=== PATIENT | female | born 1995 | race Caucasian/White ===

== ENCOUNTER → 2019-11-07 13:38 | Outpatient (BNVA) | payer OTHER, SELFPAY | PROVIDERS: Visit Provider Family Medicine | DX: Z11.59 Encounter for screening for other viral diseases (principal) | CPT/HCPCS: 87635 ==

== ENCOUNTER 2020-09-04 08:50 | Emergency (ER) | payer SELFPAY ==
[2020-09-04 09:07] VITALS: BP 153/113; PULSE 109; RESP 15; TEMP 36.3; O2SAT 98; BMI 44.3
--- NOTE | 2020-09-04 09:17 | ED_ITS ---
HPI - Back Pain/Injury General: Chief Complaint: Back Pain/Injury Stated Complaint: back pain Time Seen by Provider: 09/04/20 09:08 History of Present Illness: HPI Narrative: Complains about bilateral flank pain that is radiating to her abdomen since yesterday evening. Did take some Aleve and gabapentin did not provide any relief. Patient is also has a history of hypertension which she not taken medication for due to the cost. Denies fever ,chill ,bowel or bladder problem MD elicited complaint: back pain Pertinent past history: prior back pain Onset (ago): hour(s) Timing: constant Severity: mild Similar Symptoms Previously: No Quality: dull (Fullness bilateral low back) Location: left flank and right flank Radiation: abdomen Exacerbating factors: movement Relieving factors: immobilization Associated symptoms: Reports no associated symptoms and urinary urgency; Deny abdominal pain, chills, fever(s), nausea or vomiting Treatments prior to arrival: NSAIDS and other medications Review of Systems Const: Denies: fever(s), chills or body aches Eyes: Denies: change in vision or blurry vision ENMT: Denies: throat pain or nasal congestion Card: Denies: chest pain or dyspnea on exertion Resp: Denies: dyspnea, productive cough or non-productive cough GI: Denies: abdominal pain, nausea or vomiting : Reports: flank pain, urinary frequency and urinary urgency Musc: Reports: back pain; Denies: extremity pain Skin/Breast: Denies: rash Neuro: Denies: headache(s) Psych: Denies: anxiety or depression David/Lymph: Denies: easy bruising PFS ED PFSH: Social History Smoking and tobacco status: current every day smoker Alcohol intake: never Marital status: Current gender identity: Female Female Reproductive History: Date of last menstrual period: 08/21/20 Physical Exam Const: COMMON NORMALS: no acute distress, average body habitus and patient o riented x3 HENMT: COMMON NORMALS: normocephalic HEAD & SCALP: normal to inspection and normocephalic FACE & SINUS: normal facial exam Eye: COMMON NORMALS: conjunctivae normal GENERAL EYE: appearance normal, both eyes and all related structures CONJUNCTIVA: Yes conjunctivae normal Neck/C-Spine: COMMON NORMALS: no JVD Chest: COMMONS NORMALS: normal inspection of the chest Resp: COMMON NORMALS: normal respiratory effort and clear to auscultation bilaterally AUSCULTATION: clear to auscultation bilaterally Cardio: COMMON NORMALS: no JVD, regular rate and regular rhythm RATE: regular rate RHYTHM: regular rhythm GI: COMMON NORMALS: Soft to palpation INSPECTION: Yes normal to inspection AUSCULTATION: Yes normoactive bowel sounds PALPATION: Yes Soft to palpation : BLADDER/KIDNEY EXAM: Yes CVA tenderness bilateral Back/Pelvis: GENERAL BACK: Yes CVA tenderness Extremity: COMMON NORMALS: normal to inspection and full ROM Neuro: COMMON NORMALS: patient oriented x3 Course Vital Signs: Vital signs: Vital Signs Temperature 97.3 F L 09/04/20 09:07 Pulse Rate 98 09/04/20 10:04 Respiratory Rate 18 09/04/20 10:04 Blood Pressure 166/127 09/04/20 10:04 Pulse Oximetry 97 09/04/20 10:04 MDM - Back Pain/Injury Lab Data: Labs: Lab Results 09/04/20 09/04/20 Range/Units 10:10 10:10 WBC 12.1 H (4.0-10.0) 10^3/ uL RBC 5.21 (4.1-5.3) 10^6/u L Hgb 14.7 (11.5-15.3) g/dL Hct 46.6 (37.0-47.0) % MCV 89.4 (81-99) fL MCH 28.2 (28.0-34.0) pg MCHC 31.5 (30.0-36.0) g/dL RDW 12.4 (12.1-15.1) % Plt Count 296 (130-400) 10^3/c mm MPV 9.8 (7.4-10.4) fL Neut % (Auto) 58.8 % Lymph % (Auto) 33.0 % [place] % (Auto) 4.4 % Eos % (Auto) 3.2 % Baso % (Auto) 0.3 % Neut # (Auto) 7.09 (1.8-7.7) 10^3/u L Lymph # (Auto) 4.0 (0.8-4.8) 10^3/u L [place] # (Auto) 0.5 (0.2-0.9) 10^3/u L Eos # (Auto) 0.4 (0.0-0.8) 10^3/u L Baso # (Auto) 0.0 (0.0-0.1) 10^3/u L Nucleated RBC % (a uto) 0 % Nucleated RBCs # 0.0 /100WBC Urine Color Yellow (Yellow) Urine Appearance Clear (CLEAR) Urine pH 5 (5-7) Ur Specific Gravit y 1.030 (1.005-1.030) Urine Protein Neg (Negative) Urine Glucose (UA) Norm (Normal) Urine Ketones Negative (Negative) Urine Blood Neg (Negative) Urine Nitrate Negative (Negative) Urine Bilirubin Neg (Negative) Urine Urobilinogen Norm (Negative) mg/dL Ur Leukocyte Isis ase Trace H (Negative) Urine RBC None (0-2) /hpf Urine WBC 5-10 H (0-5) /hpf Ur Squamous Epith Cells 10-15 H (0-5) /hpf Amorphous Sediment 1+ /hpf Urine Bacteria 2+ H (NONE) /hpf Discharge Plan Discharge Prescriptions: No Action methylprednisolone [Medrol (Norbert)] 4 mg tablets,dose pack See Rx Instructions PO PER PKG DIR Qty: 21 RF: 0 sulfamethoxazole-trimethoprim [Bactrim DS] 800-160 mg tablet 1 tab PO BID Qty: 20 RF: 0 phenazopyridine [Pyridium] 100 mg tablet 100 mg PO TID PRN (Reason: pain) Qty: 20 RF: 0 Coding Level of Care Code ED Supervisor Electric for Chg Fwd Exam Comprehensive
[2020-09-04 10:04] VITALS: BP 166/127; PULSE 98; RESP 18; O2SAT 97
[2020-09-04] MEDS: amlodipine 10 mg Tablet PO (10:14)
[2020-09-04 10:16] LABS: Basophils % 0.3 %; Eosinophils # 0.4 10^3/uL (0.0-0.8); Eosinophils % 3.2 %; Hematocrit 46.6 % (37.0-47.0); Hemoglobin 14.7 g/dL (11.5-15.3); Mean Corpuscular HGB Conc 31.5 g/dL (30.0-36.0); Mean Corpuscular Hemoglobin 28.2 pg (28.0-34.0); Mean Corpuscular Volume 89.4 fL (81-99); Mean Platelet Volume 9.8 fL (7.4-10.4); Monocytes # 0.5 10^3/uL (0.2-0.9); Monocytes % 4.4 %; Neutrophils # 7.09 10^3/uL (1.8-7.7); Neutrophils % 58.8 %; Nucleated Red Blood Cells % 0 %; Platelet Count 296 10^3/cmm (130-400); Red Blood Count 5.21 10^6/uL (4.1-5.3); Red Cell Distribution Width 12.4 % (12.1-15.1); White Blood Count 12.1 10^3/uL (4.0-10.0)
[2020-09-04 10:22] LABS: Add Urine Microscopic? YES; Bilirubin Urine Neg (Negative); Blood Urine Neg (Negative); Glucose Urine UA Norm (Normal); Ketones Urine Negative (Negative); Leukocyte Esterase Urine Trace (Negative); Nitrate Urine Negative (Negative); Protein Urine Neg (Negative); Urine Appearance Clear (CLEAR); Urine Color Yellow (Yellow); Urobilinogen Urine Norm (Negative); pH Urine 5 (5-7)
[2020-09-04 10:30] LABS: Amorphous Sediment Urine 1+ /hpf; Bacteria Urine 2+ /hpf
[2020-09-04 10:31] LABS: Add Urine Culture? No
[2020-09-04 10:37] LABS: Alanine Aminotransferase 79 U/L (0-33); Albumin Level 4.4 g/dL (3.5-5.2); Alkaline Phosphatase 90 IU/L (35-105); Anion Gap 13.2 (5-19); Aspartate Amino Transferase 43 U/L (0-32); Blood Urea Nitrogen 11 mg/dL (6-20); Calcium 9.3 mg/dL (8.5-10.5); Carbon Dioxide 27 mmol/L (22-29); Chloride 102 mmol/L (98-107); Globulin 2.7 g/dL (1.3-4.6); Glomerular Filtration Rate 120.8 mL/min (90-130); Glucose 92 mg/dL (65-115); Lipase 26 U/L (13-60); Osmolality Calculated 285 mOsm/kg (285-295); Potassium 4.2 mmol/L (3.5-5.1); Sodium 138 mmol/L (136-145); Total Bilirubin 0.3 mg/dL (0.15-1.2); Total Protein 7.1 g/dL (6.6-8.7)
[2020-09-04] MEDS: nitrofurantoin SR (BID) 100 mg Capsule PO (10:45)
[2020-09-04] MEDS: TRAMadol 50 mg Tablet PO (10:45)
[2020-09-04 11:16] VITALS: BP 172/103; PULSE 95; RESP 18; TEMP 37.1; O2SAT 97
== END 2020-09-04 11:17 | disposition home or self-care (01) ==
PROVIDERS: Emergency Provider Nurse Practitioner Family
DX: M54.9 Dorsalgia, unspecified (principal); F17.210 Nicotine dependence, cigarettes, uncomplicated
CPT/HCPCS: 80053; 81001; 83690; 85025; 99283

== ENCOUNTER 2021-11-16 11:00 | Emergency (ER) | payer SELFPAY ==
[2021-11-16 11:05] VITALS: BP 161/121; PULSE 101; RESP 16; TEMP 37.2; O2SAT 98; BMI 47.2
--- NOTE | 2021-11-16 11:11 | ED_ITS ---
HPI - Head Injury General: Chief complaint: Head Injury Stated complaint: hit head; nausea; disorientation Time Seen by Provider: 11/16/21 11:01 History of Present Illness: Patient is a 26-year-old female comes to the ED after head injury. Injury occurred yesterday. Patient stepped on the teeth of a rake and popped up and hit her in her head. Her headache had a metal handle and it hit the right side of her head. Denies any loss of consciousness. She says she felt a little dazed and out of it right afterwards. Today she woke up and was having 7 out of 10 headache. She also reports having some episodes of dizziness and nausea as well. Denies any vision changes, weakness to 1 side of her body or face or change in sensation to face or body. Associated symptoms: Reports nausea; Deny neck pain or vomiting Review of Systems Const: Denies: fever(s), chills or fatigue Eyes: Denies: change in vision or eye discomfort ENMT: Denies: throat pain, odynophagia, nasal discharge or nasal congestion Card: Denies: chest pain, palpitations, edema, swelling of feet/ankles, dyspnea on exertion or orthopnea Resp: Denies: dyspnea, productive cough or non-productive cough GI: Reports: nausea; Denies: abdominal pain, vomiting, diarrhea, constipation or hematochezia : Denies: flank pain, dysuria or hematuria Musc: Denies: neck pain, back pain or extremity swelling Skin/Breast: Denies: rash or new lesions Neuro: Reports: headache(s) and dizziness (Episode); Denies: numbness in extremities or weakness in extremities [facility] ED PFSH: Medical History No pertinent family history Surgical History No pertinent past surgical history Social History Smoking and tobacco status: current every day smoker Second hand smoke exposure: No Alcohol intake: never Caregiver/support person: Yes Lives independently: Yes Household members: spouse Marital status: service: No Current occupational status: employed Current occupation: [employer] History of recent travel: No Current gender identity: Female Special yogesh needs: No Agree to transfusion: Yes Female Reproductive History: Date of last menstrual period: 10/26/21 Physical Exam Const: COMMON NORMALS: no acute distress, patient oriented x3 and alert GENERAL APPEARANCE: cooperative and comfortable HENMT: COMMON NORMALS: normocephalic HEAD & SCALP: normocephalic and scalp tenderness (Tenderness to scalp on right frontal region); no Bear's sign and no raccoon eyes MOUTH: Normal oral and palatal mucosa present THROAT: posterior oropharynx normal and uvula midline Eye: COMMON NORMALS: Equal, round and reactive pupils present and EOMs intact bilaterally GENERAL EYE: appearance normal, both eyes and all related structures PUPIL: Yes Equal, round and reactive pupils present Neck/C-Spine: COMMON NORMALS: supple GENERAL: Yes normal visual inspection Lymph: LYMPHATIC: no lymphadenopathy noted Resp: COMMON NORMALS: normal respiratory effort, No retractions, No use of accessory muscles and clear to auscultation bilaterally AUSCULTATION: clear t o auscultation bilaterally Cardio: COMMON NORMALS: regular rate, regular rhythm, S1 normal heart sound present, S2 normal heart sound present, No gallops present (Cardio), No clicks present (Cardio), No murmurs present (Cardio) and Peripheral pulses 2+ throughout RATE: regular rate RHYTHM: regular rhythm HEART SOUNDS: S1 normal heart sound present and S2 normal heart sound present PERIPHERAL PULSES: Peripheral pulses 2+ throughout GI: COMMON NORMALS: Normal to inspection, nondistended, normoactive bowel sounds present, Soft to palpation, non-tender and no masses PALPATION: Yes Soft to palpation : COMMON NORMALS: Yes no CVA tenderness BLADDER/KIDNEY EXAM: Yes no CVA tenderness Back/Pelvis: COMMON NORMALS: no CVA tenderness Extremity: GENERAL: Yes normal exam except as noted Neuro: COMMON NORMALS: patient oriented x3, CN's II-XII intact bilaterally, moves all extremities, no focal motor deficits and no sensory deficits noted SENSORIUM/ORIENTATION: Yes alert SENSORY EXAM: Yes extremities (intact) MOTOR EXAM: 5/5 motor strength present throughout Skin: COMMON NORMALS: no rashes or lesions noted GENERAL SKIN EXAM: no rashes or lesions noted and dry skin Course Vital Signs: Vital signs: Vital Signs Temperature 98.9 F 11/16/21 11:05 Pulse Rate 101 H 11/16/21 11:05 Respiratory Rate 16 11/16/21 11:05 Blood Pressure 161/121 11/16/21 11:05 Pulse Oximetry 98 11/16/21 11:05 MDM - Head Injury Medcial Decision Making Patient is a 26-year-old female comes to the ED after head injury. Injury occurred yesterday. Patient stepped on the teeth of a rake and popped up and hit her in her head. Denies any loss of consciousness. Vitals are stable. Exam of patient is benign and neuro exam shows no deficits. CT of head shows no acute findings. Patient was given a dose of Toradol and Zofran while here in the ED. Patient diagnosed with minor head injury without loss of consciousness and discharged home. Told to follow-up with PCP in the next week for reevaluation. Return to ED precautions given. Patient understood and agreed with plan. Lab Data Radiology Impressions Head CT 11/16/21 11:18 IMPRESSION: No acute intracranial abnormality. Discharge Plan Discharge Patient Disposition: Home Clinical Impression: Minor head injury without loss of consciousness Qualifiers: Encounter type: initial encounter Qualified Code(s): S09.90XA - Unspecified injury of head, initial encounter Condition: Stable Prescriptions: No Action methylprednisolone [Medrol (Norbert)] 4 mg tablets,dose pack See Rx Instructions PO PER PKG DIR Qty: 21 0RF Rx Instructions: PO PER PKG DIR diclofenac sodium 75 mg tablet,delayed release (DR/EC) 75 mg PO BID PRN (Reason: pain) Qty: 30 0RF cyclobenzaprine 10 mg tablet 10 mg PO TID PRN (Reason: muscle spasm) Qty: 30 0RF azithromycin 250 mg tablet See Rx Instructions PO .COMPLEX Qty: 6 0RF Rx Instructions: take 500 mg today (day 1), then 250 mg for 4 days (days 2-5) PO prednisone 20 mg tablet 40 mg PO DAILY Qty: 10 0RF albuterol sulfate [ProAir HFA] 90 mcg/actuation HFA aerosol inhaler 2 puff inhalation Q6H PRN (Reason: shortness of breath or wheezing) Qty: 8.5 1RF sulfamethoxazole-trimethoprim [Bactrim DS] 800-160 mg tablet 1 tab PO BID Qty: 14 0RF Discharge Orders: Discharge ED (Routine); Ordered 11/16/21 Ordered By: Venancio Barksdale Referrals: Martinez,Krysten, MD [Primary Care Provider] - Discharge Diet: Regular Discharge Activity: Increase activity as tolerated Patient Instructions: Head Injury (ED) Activity Restrictions/Additional Instructions: Follow-up with medical provider as directed in the next 5 to 7 days reevaluation. Take [id number] Tylenol or ibuprofen per bottle instruction for any headache. Return to the ER or your medical provider if condition worsens. Please read and understand discharge instructions. Thank you for choosing [facility] for your healthcare needs today. Please realize this is an emergency room and that we are providing you with a medical screening exam and this may not be complete and all inclusive of all the testing and or work up that you may need to determine your ailment or severity of your illness. It is very important that you follow up as instructed or that you return to the Emergency Department should you have concerns or if your condition changes or worsens in any way. Coding Level of Care Code ED Urban Design Consultant for Cintia Fwmaged Exam Comprehensive
--- NOTE | 2021-11-16 11:18 | CTR_ITS ---
PROCEDURE INFORMATION: Exam: CT Head Without Contrast Exam date and time: 11/16/2021 11:43 AM Age: 26 years old Clinical indication: Injury or trauma; Other: Hit in head with rake; Blunt trauma (contusions or hematomas); Without loss of consciousness; Additional info: Hit in head with metal rake-right side of head TECHNIQUE: Imaging protocol: Computed tomography of the head without contrast. Radiation optimization: All CT scans at this facility use at least one of these dose optimization techniques: automated exposure control; mA and/or kV adjustment per patient size (includes targeted exams where dose is matched to clinical indication); or iterative reconstruction. COMPARISON: No relevant prior studies available. RADIATION DOSE METRICS: Total DLP (mGy-cm): 1034.08 FINDINGS: Brain: Normal. No hemorrhage. Unremarkable white matter. No mass effect. Cerebral ventricles: No ventriculomegaly. Paranasal sinuses: Visualized sinuses are unremarkable. No fluid levels. Mastoid air cells: Visualized mastoid air cells are well aerated. Bones/joints: Unremarkable. No acute fracture. Soft tissues: Unremarkable. CT/CT head wo con* [id number] IMPRESSION: No acute intracranial abnormality.
[2021-11-16] MEDS: ketorolac 60 mg/2 mL INJ IM (11:40)
[2021-11-16] MEDS: ondansetron 2 mg/ML SDV 2 mL 4 MG IM (11:41)
== END 2021-11-16 12:34 | disposition home or self-care (01) ==
PROVIDERS: Emergency Provider Physician Assistant; PCP Family Medicine
DX: S09.8XXA Other specified injuries of head, initial encounter (principal); F17.210 Nicotine dependence, cigarettes, uncomplicated; W20.8XXA Other cause of strike by thrown, projected or falling object, initial encounter
CPT/HCPCS: 70450; 96372; 99285; J1885; J2405

== ENCOUNTER 2022-01-02 16:13 | Outpatient (CLI) | payer OTHER, SELFPAY ==
--- NOTE | 2022-01-02 17:00 | CTR_ITS ---
PROCEDURE INFORMATION: Exam: CT Head Without Contrast Exam date and time: 01/02/2022 4:27 PM Age: 26 years old Clinical indication: Pain; Patient HX: Headaches; Additional info: S09.90xa - unspecified injury of head, initial encounter TECHNIQUE: Imaging protocol: Computed tomography of the head without contrast. Radiation optimization: All CT scans at this facility use at least one of these dose optimization techniques: automated exposure control; mA and/or kV adjustment per patient size (includes targeted exams where dose is matched to clinical indication); or iterative reconstruction. COMPARISON: CT head wo con* [id number] 11/16/2021 11:43 AM RADIATION DOSE METRICS: Total DLP (mGy-cm): 1034.78 FINDINGS: Brain: No acute hemorrhage identified. No large territorial areas of hypoattenuation concerning for ischemic infarct identified. No intracranial mass effect. Cerebral ventricles: The ventricles are within normal limits. Paranasal sinuses: The visualized sinuses are unremarkable. Mastoid air cells: The visualized mastoid air cells are well aerated. Bones/joints: The osseous structures are intact. Soft tissues: Unremarkable. CT/CT head wo con* [id number] IMPRESSION: No acute intracranial abnormality.
== END 2022-01-02 16:14 | disposition home or self-care (01) ==
PROVIDERS: PCP Family Medicine; Visit Provider Nurse Practitioner Family
DX: S09.90XA Unspecified injury of head, initial encounter (principal); X58.XXXA Exposure to other specified factors, initial encounter
CPT/HCPCS: 70450

== ENCOUNTER → 2022-01-21 16:30 | Outpatient (BNVA) | payer SELFPAY | PROVIDERS: PCP Family Medicine; Visit Provider Nurse Practitioner Family | DX: R05.9 Cough, unspecified (principal) | CPT/HCPCS: 71046 ==

== ENCOUNTER → 2022-02-23 09:47 | Outpatient (BNVA) | payer SELFPAY | PROVIDERS: PCP Family Medicine; Visit Provider Nurse Practitioner Family | DX: N39.0 Urinary tract infection, site not specified (principal); E66.01 Morbid (severe) obesity due to excess calories; L20.9 Atopic dermatitis, unspecified; N91.1 Secondary amenorrhea; R79.89 Other specified abnormal findings of blood chemistry; Z13.1 Encounter for screening for diabetes mellitus | CPT/HCPCS: 80053; 80061; 81025; 83036; 84443; 84702 ==

== ENCOUNTER 2022-09-20 21:10 | Emergency (ER) | payer OTHER, SELFPAY ==
[2022-09-20 21:19] VITALS: BP 152/97; PULSE 113; RESP 16; TEMP 36.9; O2SAT 98; BMI 52.5
[2022-09-20] MEDS: sodium chloride 0.9% 1,000 ML 999 ML IV (21:50)
[2022-09-20 21:52] LABS: Basophils # 0.1 10^3/uL (0.0-0.1); Basophils % 0.4 %; Eosinophils # 0.3 10^3/uL (0.0-0.8); Eosinophils % 1.9 %; Hematocrit 45.9 % (37.0-47.0); Hemoglobin 14.5 g/dL (11.5-15.3); Lymphocytes # 3.6 10^3/uL (0.8-4.8); Lymphocytes % 25.4 %; Mean Corpuscular HGB Conc 31.6 g/dL (30.0-36.0); Mean Corpuscular Hemoglobin 27.8 pg (28.0-34.0); Mean Corpuscular Volume 88.1 fl (81-99); Mean Platelet Volume 10.3 fL (7.4-10.4); Monocytes # 0.5 10^3/uL (0.2-0.9); Monocytes % 3.6 %; Neutrophils # 9.53 10^3/uL (1.8-7.7); Neutrophils % 68.3 %; Nucleated Red Blood Cells % 0 %; Platelet Count 304 10^3/cmm (130-400); Red Blood Count 5.21 10^6/uL (4.1-5.3); Red Cell Distribution Width 12.4 % (12.1-15.1)
[2022-09-20] MEDS: ondansetron 2 mg/ML SDV 2 mL 4 MG IVP (21:52)
[2022-09-20 21:56] VITALS: BP 166/76; PULSE 104; RESP 18; O2SAT 97
[2022-09-20] MEDS: LORazepam 2 mg/mL INJ 1 mL 1 MG IVP (21:58)
[2022-09-20 22:08] LABS: HCG, Serum Qual Negative (Negative)
[2022-09-20 22:15] LABS: Urine Appearance Clear (CLEAR); Urine Color Colorless (Yellow)
[2022-09-20 22:16] LABS: Bilirubin Urine Neg (Negative); Blood Urine Trace (Negative); Glucose Urine UA Norm (Normal); Ketones Urine 1+ (Negative); Leukocyte Esterase Urine Negative (Negative); Nitrate Urine Negative (Negative); Protein Urine Neg (Negative); Specific Gravity, Urine 1.025 (1.005-1.030); Urobilinogen Urine Norm (Negative); pH Urine 5 (5-7)
[2022-09-20 22:17] LABS: Add Urine Microscopic? YES
[2022-09-20 22:18] LABS: Calcium Oxalate Crystals Urine 15-25 /hpf
[2022-09-20 22:21] LABS: Albumin Level 4.4 g/dL (3.5-5.2); Alkaline Phosphatase 90 U/L (35-105); Chloride 102 mmol/L (98-107); Glucose 87 mg/dL (65-115); Sodium 139 mmol/L (136-145)
[2022-09-20 22:42] LABS: Blood Urea Nitrogen 13 mg/dL (6-20); Calcium 9.9 mg/dL (8.5-10.5); Carbon Dioxide 25 mmol/L (22-29); Globulin 3.7 g/dL (1.3-4.6); Glomerular Filtration Rate 85.4 mL/min (90-130); Lipase 24 U/L (13-60); Osmolality Calculated 287 mOsm/kg (285-295); Total Bilirubin 0.5 mg/dL (0.15-1.2); Total Protein 8.1 g/dL (6.6-8.7)
[2022-09-20 22:56] VITALS: PULSE 95; RESP 18; O2SAT 98
[2022-09-20 23:09] LABS: Alanine Aminotransferase 102 U/L (0-33); Aspartate Amino Transferase 72 U/L (0-32)
[2022-09-20 23:10] LABS: C Reactive Protein 13.6 mg/L (0.0-4.9)
[2022-09-21 00:12] VITALS: BP 148/86; PULSE 106; RESP 16; O2SAT 96
--- NOTE | 2022-09-21 00:52 | ED_ITS ---
HPI - Nausea/Vomiting/Diarrhea General: Chief complaint: Nausea/Vomiting/Diarrhea Stated complaint: Vomiting \Light Headed Time Seen by Provider: 09/20/22 21:28 Source: patient History of Present Illness: 27-year-old female who was at work, when she became dizzy. She was also nauseated. She felt like my blood sugar was low . She threw up 3 times in ab out 45 minutes she says. She is somewhat better now, but still nauseated. She is still dizzy. She is able to walk. She has no other neurological symptoms. No speech or language problems, no vision changes, no weakness, no numbness or tingling. MD elicited complaint: nausea, vomiting and other Pertinent past history: other Onset (ago): hour(s) (2) Description of vomiting: food contents Associated nausea: Yes Associated abdominal pain: No Location of pain: None Quality: other Exacerbating factors: vomiting Relieving factors: none Associated symtoms: Reports dizziness and nausea; Denies altered mental status, bloating, change in vision, chest pain, cough, fevers/chills, headache(s), myalgias, numbness, short of breath or syncope Treatment prior to arrival: none Review of Systems Eyes: Denies: change in vision ENMT: Denies: throat pain Card: Denies: chest pain or syncope Resp: Denies: dyspnea GI: Reports: nausea, vomiting and diarrhea (Chronic); Denies: abdominal pain or bloating : Denies: flank pain Neuro: Reports: dizziness; Denies: headache(s) [facility] ED PFSH: Medical History Acute parotitis Bronchitis Exposure to COVID-19 virus Low back pain No pertinent family history Surgical History No pertinent past surgical history Social History Smoking and tobacco status: current every day smoker (1 PPD) cigarettes Packs smoked per day: 1 Years cigarettes smoked: 15 Alcohol intake: current Alcohol intake frequency: holidays/special occasions only Alcohol type: beer, wine and hard liquor Substance/Drug Use: former Date of last use: 7 years ago Physical Exam Const: COMMON NORMALS: no acute distress and alert EXAM LIMITATIONS: no altered mental status GENERAL APPEARANCE: cooperative; not ill appearing and not frail appearing ORIENTATION/CONSCIOUSNESS: Yes oriented to time HENMT: COMMON NORMALS: normocephalic, atraumatic and Normal external nose present HEAD & SCALP: normocephalic and atraumatic FACE & SINUS: normal facial exam and face symmetric NOSE: Normal external nose present Eye: COMMON NORMALS: Equal, round and reactive pupils present and EOMs intact bilaterally PUPIL: Yes Equal, round and reactive pupils present Neck/C-Spine: GENERAL: Yes trachea midline Chest: CHEST: Yes Symmetrical chest wall rise Resp: COMMON NORMALS: normal respiratory effort, No retractions, No use of accessory muscles and clear to auscultation bilaterally AUSCULTATION: clear to auscultation bilaterally Cardio: COMMON NORMALS: regular rate and regular rhythm RATE: regular rate RHYTHM: regular rhythm GI: COMMON NORMALS: Normal to inspection, nondistended, normoactive bowel sounds present Extremity: COMMON NORMALS: no pedal edema Neuro: KIESHA COMA SCALE: document GCS findings Kiesha coma scale eye opening: Spontaneous Kiesha coma scale verbal response: Orientated Kiesha coma scale motor response: Obey commands [place] coma scale total score: 15 SENSORIUM/ORIENTATION: Yes alert and Yes oriented to time CRANIAL NERVES: Yes CN normal except as noted COORDINATION/BALANCE: [id number] test normal SPEECH: speech normal GAIT: Yes Normal gait present (On ambulation to the bathroom) SENSORY EXAM: Yes extremities (intact) MOTOR EXAM: Pronator motor function not present and Normal motor muscle tone present throughout COORDINATION: [id number] test normal Psych: COMMON NORMALS: mental status grossly normal, cooperative and speech normal SPEECH: Yes normal speech Skin: COMMON NORMALS: no rashes or lesions noted GENERAL SKIN EXAM: no rashes or lesions noted Course Vital Signs: Vital signs: Vital Signs Temperature 98.5 F 09/20/22 21:19 Pulse Rate 106 H 09/21/22 00:12 Respiratory Rate 16 09/21/22 00:12 Blood Pressure 148/86 09/21/22 00:12 Pulse Oximetry 96 09/21/22 00:12 Oxygen Delivery Me thod Room Air 09/20/22 21:56 MDM - Nausea/Vomiting/Diarrhea Medical Decision Making Patient improved after administration of Ativan and Zofran as well as 1 L of fluid here. She has a mild leukocytosis of 14 with no left shift. There is no belly tenderness on exam. Her CRP is minimally elevated at 13. We will liver enzymes are mildly elevated, but this is chronic for her as she has fatty liver disease. Her bilirubin is 0.5. BUN and creatinine are normal. Urinalysis is negative. She is not . With ability to ambulate without assistance, and no focal neurologic findings, CT of the head not felt clinically warranted. She will be allowed discharged with symptomatic treatment. To return for worsening symptoms. Lab Data 09/20/22 21:41 09/20/22 21:41 Laboratory Results WBC 14.0 10^3/uL (4.0-10.0) H 09/20/22 21:41 RBC 5.21 10^6/uL (4.1-5.3) 09/20/22 21:41 Hgb 14.5 g/dL (11.5-15.3) 09/20/22 21:41 Hct 45.9 % (37.0-47.0) 09/20/22 21:41 MCV 88.1 fl (81-99) 09/20/22 21:41 MCH 27.8 pg (28.0-34.0) L 09/20/22 21: MCHC 31.6 g/dL (30.0-36.0) 09/20/22 21:41 RDW 12.4 % (12.1-15.1) 09/20/22 21:41 Plt Count 304 10^3/cmm (130-400) 09/20/22 21:41 MPV 10.3 fL (7.4-10.4) 09/20/22 21:41 Neut % (Auto) 68.3 % 09/20/22 21:41 Lymph % (Auto) 25.4 % 09/20/22 21:41 [place] % (Auto) 3.6 % 09/20/22 21:41 Eos % (Auto) 1.9 % 09/20/22 21:41 Baso % (Auto) 0.4 % 09/20/22 21:41 Neut # (Auto) 9.53 10^3/uL (1.8-7.7) H 09/20/22 21:41 Lymph # (Auto) 3.6 10^3/uL (0.8-4.8) 09/20/22 21:41 [place] # (Auto) 0.5 10^3/uL (0.2-0.9) 09/20/22 21:41 Eos # (Auto) 0.3 10^3/uL (0.0-0.8) 09/20/22 21:41 Baso # (Auto) 0.1 10^3/uL (0.0-0.1) 09/20/22 21:41 Nucleated RBC % (auto) 0 % 09/20/22 21:41 Nucleated RBCs # 0.0 /100WBC 09/20/22 21:41 Sodium 139 mmol/L (136-145) 09/20/22 21:41 Potassium 4.0 mmol/L (3.5-5.1) 09/20/22 21:41 Chloride 102 mmol/L (98-107) 09/20/22 21:41 Carbon Dioxide 25 mmol/L (22-29) 09/20/22 21:41 Anion Gap 16.0 (5-19) 09/20/22 21:41 BUN 13 mg/dL (6-20) 09/20/22 21:41 Creatinine 0.8 mg/dL (0.5-0.9) 09/20/22 21:41 GFR Calculation 85.4 mL/min (90-130) L 09/20/22 21:41 Glucose 87 mg/dL (65-115) 09/20/22 21:41 Calculated Osmolality 287 mOsm/kg (285-295) 09/20/22 21:41 Calcium 9.9 mg/dL (8.5-10.5) 09/20/22 21:41 Total Bilirubin 0.5 mg/dL (0.15-1.2) 09/20/22 21:41 AST 72 U/L (0-32) H 09/20/22 21:41 ALT 102 U/L (0-33) H 09/20/22 21:41 Alkaline Phosphatase 90 U/L (35-105) 09/20/22 21:41 C-Reactive Protein 13.6 mg/L (0.0-4.9) H 09/20/22 21:41 Total Protein 8.1 g/dL (6.6-8.7) 09/20/22 21:41 Albumin 4.4 g/dL (3.5-5.2) 09/20/22 21:41 Globulin 3.7 g/dL (1.3-4.6) 09/20/22 21:41 Lipase 24 U/L (13-60) 09/20/22 21:41 HCG, Qual Negative (Negative) 09/20/22 21:41 Urine Color Colorless (Yellow) 09/20/22 22:03 Urine Appearance Clear (CLEAR) 09/20/22 22:03 Urine pH 5 (5-7) 09/20/22 22:03 Ur Specific [place] 1.025 (1.005-1.030) 09/20/22 22:03 Urine Protein Neg (Negative) 09/20/22 22:03 Urine Glucose (UA) Norm (Normal) 09/20/22 22:03 Urine Ketones 1+ (Negative) H 09/20/22 22:03 Urine Blood Trace (Negative) H 09/20/22 22:03 Urine Nitrate Negative (Negative) 09/20/22 22:03 Urine Bilirubin Neg (Negative) 09/20/22 22:03 Urine Urobilinogen Norm mg/dL (Negative) 09/20/22 22:03 Ur Leukocyte Esterase Negative (Negative) 09/20/22 22:03 Urine RBC None /hpf (0-2) 09/20/22 22:03 Urine WBC None /hpf (0-5) 09/20/22 22:03 Ur Squamous Epith Cells None /hpf (0-5) 09/20/22 22:03 Calcium Oxalate Crystal 15-25 /hpf H 09/20/22 22:03 Amorphous Sediment Not Reportable 09/20/22 22:03 Urine Bacteria None /hpf (NONE) 09/20/22 22:03 Discharge Plan Discharge Patient Disposition: Home Clinical Impression: Vomiting, Dizziness Condition: Stable Prescriptions: New ondansetron 4 mg film 4 mg PO DAILY PRN (Reason: nausea and vomiting) Qty: 10 0RF meclizine 25 mg tablet 25 mg PO TID PRN (Reason: dizziness) Qty: 20 0RF No Action methylprednisolone [Medrol (Norbert)] 4 mg tablets,dose pack See Rx Instructions PO PER PKG DIR Qty: 21 0RF Rx Instructions: PO PER PKG DIR cefdinir 300 mg capsule 300 mg PO BID 10 Days Qty: 20 0RF promethazine-DM 6.25-15 mg/5 mL syrup 5 - 10 ml PO Q6H PRN (Reason: cough) Qty: 180 0RF nystatin-triamcinolone 100,000-0.1 unit/gram-% ointment 1 applic topical QID Qty: 60 0RF albuterol sulfate 90 mcg/actuation HFA aerosol inhaler 2 puff inhalation Q6H PRN (Reason: shortness of breath or wheezing) Qty: 8.5 2RF Discharge Orders: Discharge ED (Routine); Ordered 09/21/22 Ordered By: Rowdy Harper Referrals: Krysten Martinez MD [Primary Care Provider] - 1-3 days Patient Instructions: Acute Nausea and Vomiting (ED), Dizziness (ED) Activity Restrictions/Additional Instructions: Take prescribed medications scheduled for the first 24 hours, then as needed. Return for worsening dizziness or nausea/vomiting despite treatment, fever greater than 100, inability to tolerate liquids, headache, vision changes, significant weakness or language problems, other concerning symptoms. Stand Alone Forms: Work/School Release Coding Level of Care Code ED Inspector Filters for Cintia Ramsey
== END 2022-09-21 00:15 | disposition home or self-care (01) ==
PROVIDERS: Emergency Provider Emergency Medicine; PCP Family Medicine
DX: D72.829 Elevated white blood cell count, unspecified (principal); R11.10 Vomiting, unspecified; R42 Dizziness and giddiness
CPT/HCPCS: 80053; 81001; 83690; 84703; 85025; 86140; 96361; 96374; 96375; 99284; J2060; J2405; J7030

== ENCOUNTER → 2022-09-30 14:40 | Outpatient (BNVA) | payer MEDICAID, SELFPAY | PROVIDERS: PCP Family Medicine; Referring Provider Nurse Practitioner Family; Visit Provider Obstetrics & Gynecology | DX: N92.6 Irregular menstruation, unspecified (principal) | CPT/HCPCS: 83001; 83520; 84146; 84403; 84443 ==

== ENCOUNTER → 2022-10-07 11:59 | Outpatient (BNVA) | payer MEDICAID, SELFPAY | PROVIDERS: PCP Family Medicine; Visit Provider Nurse Practitioner Family | DX: E16.2 Hypoglycemia, unspecified (principal); K76.0 Fatty (change of) liver, not elsewhere classified; E66.01 Morbid (severe) obesity due to excess calories | CPT/HCPCS: 80053; 80061; 82306; 83036; 85025 ==

== ENCOUNTER → 2022-10-26 11:16 | Outpatient (BNVA) | payer MEDICAID, SELFPAY | PROVIDERS: PCP Family Medicine; Visit Provider Obstetrics & Gynecology | DX: N92.6 Irregular menstruation, unspecified (principal); N97.9 Female infertility, unspecified | CPT/HCPCS: 76830 ==

== ENCOUNTER 2022-10-30 16:08 | Outpatient (CLI) | payer MEDICAID, SELFPAY ==
--- NOTE | 2022-10-30 16:50 | XR_ITS ---
WS: [id number] LEFT TIBIA-FIBULA 2 VIEWS HISTORY: M79.605 - Pain in left leg COMPARISON: None available. No fracture, dislocation or joint abnormality. XR/XR tibia fibula LT 2V [id number] IMPRESSION: Normal LEFT tibia-fibula.
== END 2022-10-30 16:09 | disposition home or self-care (01) ==
LOC: RAD 16:09
PROVIDERS: PCP Nurse Practitioner Family; Visit Provider Nurse Practitioner Family
DX: M79.605 Pain in left leg (principal)
CPT/HCPCS: 73590

== ENCOUNTER → 2022-11-23 08:39 | Outpatient (BNVA) | payer MEDICAID, SELFPAY | PROVIDERS: PCP Nurse Practitioner Family; Visit Provider Nurse Practitioner Family | DX: R05.8 Other specified cough (principal); J02.9 Acute pharyngitis, unspecified; U07.1 COVID-19 | CPT/HCPCS: 87071; 87426; 87880 ==

== ENCOUNTER → 2023-04-28 15:58 | Outpatient (BNVA) | payer OTHER, SELFPAY | PROVIDERS: PCP Nurse Practitioner Family; Visit Provider Nurse Practitioner Family | DX: R10.9 Unspecified abdominal pain (principal); N30.00 Acute cystitis without hematuria | CPT/HCPCS: 81003; 81025; 87086 ==

== ENCOUNTER → 2023-06-28 15:06 | Outpatient (BNVA) | payer MEDICAID, SELFPAY | PROVIDERS: PCP Nurse Practitioner Family; Visit Provider Nurse Practitioner Family | DX: R50.9 Fever, unspecified (principal); R05.9 Cough, unspecified; J06.9 Acute upper respiratory infection, unspecified; B34.9 Viral infection, unspecified | CPT/HCPCS: 87400; 87426 ==

== ENCOUNTER 2024-06-14 09:32 | Outpatient (CLI) | payer OTHER, SELFPAY ==
[2024-06-14 09:55] VITALS: PULSE 86; RESP 18; O2SAT 96
[2024-06-14] MEDS: albuterol 2.5 mg/3 mL Neb INHALATION (09:55)
[2024-06-14 10:01] VITALS: PULSE 94
== END 2024-06-14 09:33 | disposition home or self-care (01) ==
LOC: RT 09:33
PROVIDERS: PCP Nurse Practitioner Family; Visit Provider Nurse Practitioner Family
DX: J40 Bronchitis, not specified as acute or chronic (principal); R94.2 Abnormal results of pulmonary function studies
CPT/HCPCS: 94060; 94726; 94729; J7613